=== PATIENT | male | born 1960 | race Caucasian/White ===

== ENCOUNTER 2019-05-18 14:33 | Observation (INO) ==
[2019-05-18] MEDS ORDERED: ASPIRIN CHEW 324 MG PO STA (14:54)
--- NOTE | 2019-05-18 15:03 | XRay Report ---
XR chest 1V portable CLINICAL HISTORY: Atypical chest pain COMPARISON STUDY: CT scan performed the same day FINDINGS: The cardiac and mediastinal contours are normal. There is no evidence of focal pulmonary co nsolidation. There is no evidence of failure. No pleural effusions are visualized.[Mild emphysema is suspected. There is lingular atelectasis/scarring. IMPRESSION: No active disease in the chest. ACT 112: Negative or not required by law. Electronically signed by: Kan Hernandez M.D. 05/18/2019 3:01 PM
[2019-05-18 15:27] LABS: Basophils # (auto) 0.06 K/uL (0-0.2); Basophils % (auto) 0.5 %; Eosinophils # (auto) 0.34 K/uL (0-0.5); Eosinophils % (auto) 3.1 %; Hematocrit (blood only) 47.5 % (42-52); Immature Granulocytes # (auto) 0.04 K/uL (0.00-0.02); Immature Granulocytes % (auto) 0.4 %; Lymphocytes # (auto) 2.83 K/uL (1.2-3.4); Lymphocytes % (auto) 25.9 %; Mean Corpuscular Hemoglobin 28.4 pg (25-34); Mean Corpuscular Hgb Conc 33.7 g/dL (32-36); Mean Corpuscular Volume 84.2 fL (80-100); Mean Platelet Volume 8.8 fL (7.4-10.4); Monocytes # (auto) 0.87 K/uL (0.11-0.59); Neutrophils # (auto) 6.78 K/uL (1.4-6.5); Neutrophils % (auto) 62.1 %; Platelet Count 279 K/uL (130-400); RDW Coefficient of Variation 14.2 % (11.5-14.5); RDW Standard Deviation 43.7 fL (36.4-46.3); Red Blood Count 5.64 M/uL (4.7-6.1); White Blood Count 10.92 K/uL (4.8-10.8)
[2019-05-18 15:45] LABS: Alanine Aminotransferase 24 U/L (12-78); Albumin Level 3.5 gm/dl (3.4-5.0); Aspartate Aminotransferase 11 U/L (15-37); BUN Creatinine Ratio 20.5 (10-20); Blood Urea Nitrogen 21 mg/dl (7-18); Calcium 9.1 mg/dl (8.5-10.1); Carbon Dioxide 26 mmol/L (21-32); Chloride 104 mmol/L (98-107); Creatinine Clr Calc Pharmacy 110.1 ml/min; Est GFR (African American) 89.6; Est GFR (Non-African American) 77.3; Glucose 102 mg/dl (70-99); Lipase 104 U/L (73-393); Sodium 135 mmol/L (136-145)
[2019-05-18 15:49] LABS: Albumin Globulin Ratio 0.7 (0.9-2); Alkaline Phosphatase 78 U/L (45-117); Bilirubin,Total 0.5 mg/dl (0.2-1); Partial Thromboplastin Time 26.1 Seconds (21.0-31.0); Prothrombin Time 10.7 Seconds (9.0-12.0); Total Protein 8.5 gm/dl (6.4-8.2); Troponin I < 0.015 ng/ml (0-0.045)
--- NOTE | 2019-05-18 17:04 | History & Physical Report ---
Date of Service May 18, 2019 Assessment & Plan (1) Chest pain: This is a 58-year-old male who has significant past medical history of COPD, tobacco abuse, prediabetes who presents to ED at the referral of cardiology clinic secondary to chest pain x several weeks. Admit to PCU Consult Cardiology Dr. Coburn - plan for cardiac catheterization in a.m. given symptoms suggestive of angina, +FH, tobacco abuse cycle troponin x 3 repeat ecg obtain resting echocardiogram fasting lipid panel, a1c in a.m. tobacco cessation advised Give IVF x 1 L given pre renal Bun 21, Cr 1.05 in prep for cardiac cath in a.m. (2) COPD (chronic obstructive pulmonary disease): No acute exacerbation Saturating well on room air Continue Anoro (3) Tobacco abuse: Tobacco cessation encouraged Patient declined willingness to quit at this time continue to provide education on smoking cessation (4) Pre-diabetes: Last A1c 6.1 05/08/2019 Encourage lifestyle modifications and weight reduction (5) Obesity: encourage life style modifications (6) DVT prophylaxis: SCD/TEDS Disposition: admit to tele, cardiac cath in a.m. Follow up: PCP Dr. Yoder upon discharge along with appropriate cardiology follow up Pt was seen and examined in collaboration with Dr. Blackwood, please see addendum History of Present Illness Chief Complaint: Chest pain x several weeks progressively worsening. Primary Care Provider: Leif Yoder MD This is a 58-year-old male who has significant past medical history of COPD, tobacco abuse, prediabetes who presents to ED at the referral of cardiology clinic secondary to chest pain times several weeks. Patient follows with Dr. mullins for pulmonology and his diagnosis of COPD and emphysema. During his last visit he mentioned about tachycardia and feeling like his heart was racing with minimal exertion. He then referred him to cardiology for further evaluation which she was seen today in clinic by Nella Arreola PA-C. Patient complained that he has been experiencing left-sided chest discomfort for approximately 2 years. Over the past 2 years his symptoms have been progressively worsening. Initially symptoms would just be with exertion but has now progressed to at rest. Chest pain is left-sided, now occasionally radiating to left neck and jaw with associated dizziness and diaphoresis, described as a "pinching," improved with rest and made worse with exertion. He states he has learned how to improve symptoms by resting and changing his position. 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 He states even with climbing 1 flight of stairs he gets symptomatic and has to rest. He denies any lower extremity edema, orthopnea or PND. He further denies any recent illness, fever, chills, sweats, syncope, shortness of breath at rest, nausea, vomiting, abdominal pain, change in bowel or urinary habits. Currently he is asymptomatic. He is a 1 to 2 pack/day smoker and has smoked since the age of 12. "It is a mental thing." Denies willingness to quit at this time. He does have a positive family history with CAD in his mother and his brother who in his 30s secondary to a massive heart attack, "his heart exploded." However, when he was in cardiology clinic today he did get acute onset of left-sided chest discomfort with radiation to jaw and associated diaphoresis. Symptoms resolved quickly without intervention. EKG performed which revealed inferior infarct and subtle ST elevation in inferior leads per report. Because of acute onset symptoms he was referred to ED for further evaluation. During my evaluation he is resting comfortably and is asymptomatic. In ED he has remained hemodynamically stable. Initial troponin is WNL. Chest x-ray is with no acute cardiopulmonary disease. EKG revealed normal sinus rhythm 74 bpm with inferior and anterior infarct. No acute ST or T wave changes noted. He did have mild elevation in BUN 21 and creatinine 1.05. He received ASA 324 mg x 1 in ED. Allergies Allergy/AdvReac Type Severity Reaction Status Date / Time No Known Allergies Allergy Verified 05/18/19 15:54 Home Medications Home Medications Medication Instructions Recorded Confirmed Type umeclidinium-vilanterol [Anoro 1 inh INHALATION DAILY 05/18/19 05/18/19 History Ellipta] Past Med/Surg History Medical History COPD (chronic obstructive pulmonary disease) Pre-diabetes Tobacco abuse Surgical History History of tonsillectomy Family History Father Cancer COPD (chronic obstructive pulmonary disease) Mother Coronary heart disease Brother , 30s Myocardial infarction Other No significant family history Social History (Updated 05/18/19 @ 16:55 by Steffi Duggan PA-C) Preferred Language: Vietnamese Communication Ability: Effective Ham Pumper Required: No Beliefs That Will Affect Care: None marital status: Current Living Situation: Spouse Current Living Situation Comment: 2 story house Other Information That Helps Us Care for You: No Feels Safe at Home: Yes Safety Concerns: Feels Safe At This Time Smoking Status: Current every day smoker Tobacco Type: cigarettes ; Age Started Using Tobacco: 12 ; packs per day: 1 ; Years Smoked: 46 ; Cigarettes Per Day: 2 packs/day since he was 12 years old ; Do You Dip or Chew Tobacco: No ; Second Hand Exposure: Yes ; Tobacco Cessation Education Requested by Patient: No Hx Alcohol Use: Yes Alcohol type: beer and hard liquor Alcohol Intake Frequency: Rarely Hx Substance Use: No Review of Systems Review of Systems: All systems reviewed & are unremarkable except as noted in HPI & below Physical Exam Physical Exam: Constitutional: WD/WN, morbidly obese, M, vitals as above, NAD, sitting up in bed, pleasant, conversing easily Head: Normocephalic, Atraumatic Eyes: PERRL, conjunctivae normal, anicteric sclerae ENMT: external ear and nose normal, oropharynx normal Neck: trachea midline, no thyromegaly normal visual inspection Respiratory: normal respiratory effort, lungs clear to auscultation, no wheeze, rales, rhonchi. Normal insp/exp effort, no accessory muscle use Cardiovascular: RRR, distant heart sounds due to body habitus, no murmur, no edema Vessels: no JVD or carotid bruit Chest: normal inspection of chest Abdomen: protuberant abdomen, normal bowel sounds, soft, nontender, no hepatosplenomegaly Musculoskeletal: no cyanosis or clubbing, extremities motor strength 5/5 Skin: no rashes, warm and dry normal turgor Neurologic: PERRL, EOMI, accommodation nl, no face palsy, no dysarthria CN's II-XI intact bilaterally and moves all extremities Psychiatric: A+Ox3, euthymic affect Lymphatic: no cervical or axillary lymphadenopathy : deferred Results & Data Vital Signs (Past 12 Hours) Vital Signs Temp Pulse Pulse Resp BP BP Pulse Ox 05/18/19 16:30 68 20 137/90 95 05/18/19 16:00 73 18 132/73 95 05/18/19 15:30 73 22 123/72 92 05/18/19 14:45 95 05/18/19 14:40 36.8 C 75 20 161/80 H 95 Laboratory Results Short CBC 05/18/19 05/18/19 Range/Units 15:11 15:11 WBC 10.92 H (4.8-10.8) K/uL Hgb 16.0 (14.0-18.0) g/dL Hct 47.5 (42-52) % Plt Count 279 (130-400) K/uL Sodium 135 L (136-145) mmol/L BUN 21 H (7-18) mg/dl Creatinine 1.05 (0.6-1.4) mg/dl BMP 05/18/19 15:11 Sodium 135 L Potassium 4.0 Chloride 104 Carbon Dioxide 26 BUN 21 H Creatinine 1.05 Glucose 102 H Calcium 9.1 Cardiac Enzymes 05/18/19 Range/Units 15:11 Troponin I < 0.015 (0-0.045) ng/ml Liver Function 05/18/19 Range/Units 15:11 Total Bilirubin 0.5 (0.2-1) mg/dl AST 11 L (15-37) U/L ALT 24 (12-78) U/L Alkaline Phosphatase 78 (45-117) U/L Albumin 3.5 (3.4-5.0) gm/dl Diagnostic Findings CXR: FINDINGS: The cardiac and mediastinal contours are normal. There is no evidence of focal pulmonary consolidation. There is no evidence of failure. No pleural effusions are visualized.[Mild emphysema is suspected. There is lingular atelectasis/scarring. IMPRESSION: No active disease in the chest. Medications Administered Discontinued Medications Aspirin (Aspirin) 324 mg PO NOW [facility] Stop: 05/18/19 14:55 Last Admin: 05/18/19 15:22 Dose: 324 mg Documented by: [id number] ECG Rate (beats per minute): 74 Rhythm: normal sinus Findings: + nonspecific-ST abn (subtle lateral, III st wave changes) and + Q waves (inferior) Comparison ECG Date: no prior available Additional Comments: QTC 452ms Code Status & VTE Plan Code Status Full Code VTE Prophylaxis Plan VTE Prophylaxis will be ordered: Yes Supervising Physician Co-Signing Physician Notes Attending addendum Patient was seen and examined in telemetry unit in presence of the He has been complaining of exertional shortness of breath without any significant chest pain for the last several weeks Was seen in the cardiology clinic today and was advised to come into the hospital Denies any chest pain or palpitation during my examination On examination Lying in bed comfortably He is obese Hemodynamically stable Chest-clear to auscultate bilaterally Heart-S1, S2 regular. No murmur appreciated Abdomen-soft, distended, bowel sounds present Extremities-trace edema bilaterally Admission labs, EKG and imaging studies reviewed Has atypical angina for further evaluation Cardiology consulted for possible cardiac cath tomorrow Agree with assessment plan as outlined above by Abilio Blackwood (1) Chest pain Chest pain type: unspecified Qualified Code(s): R07.9 - Chest pain, unspecified
[2019-05-18] MEDS ORDERED: ACETAMINOPHEN 325 MG TAB PO PRN (17:12)
[2019-05-18] MEDS ORDERED: MAGNESIUM HYDROXIDE SUSP 30 ML UDC PO PRN (17:12)
[2019-05-18] MEDS ORDERED: ONDANSETRON INJ 2 MG/ML 2 ML VIAL IV PRN (17:12)
[2019-05-18] MEDS ORDERED: ALUMINUM/MAGNESIUM SUSP 30 ML UDC PO PRN (17:12)
[2019-05-18] MEDS ORDERED: SODIUM CHLORIDE 0.9% 1000ML 1,000 ML IV SCH (17:12)
[2019-05-18] MEDS ORDERED: NITROGLYCERIN SL 0.4 MG/TAB TAB SL PRN (17:12)
[2019-05-18] MEDS ORDERED: POLYETHYLENE (MIRALAX) 17 GM PACK PO PRN (17:12)
[2019-05-18] MEDS: AMLODIPINE BESYLATE 5 MG TAB PO SCH (20:33)
--- NOTE | 2019-05-18 21:41 | Emergency Department Note ---
Entered by Leoncio Hanna acting as a scribe for History of Present Illness General Chief complaint: Cardiac Assessment Stated complaint: SENT BY DR NICOLE FOR HEART CATH Time Seen by Provider: 05/18/19 14:45 Source: patient History of Present Illness Onset (ago): month(s) 1 Location: chest Pain Consistency: + other (worsening) Maximum Pain Intensity: 0 Quality: + other (SOB) Associated symptoms: + other (Positive for weakness, a racing heart, and intermittent dizziness. Negative for current SOB, CP and LOC.) The patient is a 58 year old male who presents to the emergency department with complaints of worsening SOB beginning a month ago. The patient states that he was referred to the emergency department by Dr. Almas GRIJALVA for a cardiac catheterization. He notes that he has had SOB, weakness, and a racing heart for the last month, but he reports that his symptoms have been worsening recently. He also complains of intermittent dizziness. He denies any current CP, SOB, and LOC. The patient states that he has a history of COPD. Home Medications Home Medications Medication Instructions Recorded Confirmed Type umeclidinium-vilanterol [Anoro 1 inh INHALATION DAILY 05/18/19 05/18/19 History Ellipta] Allergies Allergy/AdvReac Type Severity Reaction Status Date / Time No Known Allergies Allergy Verified 05/18/19 15:54 Past Med/Surg History Medical History COPD (chronic obstructive pulmonary disease) Pre-diabetes Tobacco abuse Surgical History History of tonsillectomy Family History Father Cancer COPD (chronic obstructive pulmonary disease) Mother Coronary heart disease Brother , 30s Myocardial infarction Other No significant family history Social History (Updated 05/18/19 @ 16:55 by Steffi Duggan PA-C) Preferred Language: Iraqi Communication Ability: Effective 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 Rod 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 Required: No Beliefs That Will Affect Care: None marital status: Current Living Situation: Spouse Current Living Situation Comment: 2 story house Other Information That Helps Us Care for You: No Feels Safe at Home: Yes Safety Concerns: Feels Safe At This Time Smoking Status: Current every day smoker Tobacco Type: cigarettes ; Age Started Using Tobacco: 12 ; packs per day: 1 ; Years Smoked: 46 ; Cigarettes Per Day: 2 packs/day since he was 12 years old ; Do You Dip or Chew Tobacco: No ; Second Hand Exposure: Yes ; Tobacco Cessation Education Requested by Patient: No Hx Alcohol Use: Yes Alcohol type: beer and hard liquor Alcohol Intake Frequency: Rarely Hx Substance Use: No Review of Systems See HPI for pertinent positives & negatives. and A total of 10 systems reviewed and were otherwise negative Physical Exam Vital Signs Vital Signs - 24 hr 05/18/19 14:40 05/18/19 14:45 05/18/19 15:30 Temperature 36.8 C Temperature Source Oral Pulse Rate 75 Pulse Rate [Apical] 73 Pulse Rate from SpO2 Sensor Respiratory Rate 20 22 Respiratory Effort / Characteristics Non-Labored Spontaneous Respiratory Depth Normal Respiratory Pattern Regular Blood Pressure 161/80 H Blood Pressure [Right Arm] 123/72 Blood Pressure Mean 107 Blood Pressure Mean [Right Arm] 89 Blood Pressure Position Sitting Blood Pressure Position [Right Arm] Standing Pulse Oximetry 95 95 92 Oxygen Delivery Method Room Air Room Air Room Air Sepsis Recent Fever Within 48 Hours No Sepsis New/Unexplained Change in Mental Status No Sepsis Action Taken by Nursing No Action Required 05/18/19 16:00 Temperature Temperature Source Pulse Rate 73 Pulse Rate [Apical] Pulse Rate from SpO2 Sensor 72 Respiratory Rate 18 Respiratory Effort / Characteristics Respiratory Depth Respiratory Pattern Blood Pressure 132/73 Blood Pressure [Right Arm] Blood Pressure Mean 83 Blood Pressure Mean [Right Arm] Blood Pressure Position Blood Pressure Position [Right Arm] Pulse Oximetry 95 Oxygen Delivery Method Sepsis Recent Fever Within 48 Hours Sepsis New/Unexplained Change in Mental Status Sepsis Action Taken by Nursing GENERAL: He is oriented to person, place, and time. He appears well-developed and well-nourished. He does not appear distressed. HENT: Exam performed. - Head: Normocephalic and atraumatic. - Right Ear: External ear normal. No mastoid tenderness. - Left Ear: External ear normal. No mastoid tenderness. - Mouth/Throat: The oropharynx is clear and moist. No trismus in the jaw. No dental abscesses or uvula swelling. No oropharyngeal exudate or tonsillar abscesses. EYES: Conjunctivae and EOM are normal. Pupils are equal, round, and reactive to light. Right eye exhibits no discharge. Left eye exhibits no discharge. No scleral icterus. NECK: Normal range of motion. Neck supple. No JVD present. No spinous process tenderness present. No carotid bruit present. No rigidity. No tracheal deviation and normal range of motion present. No Brudzinski's sign and no Kernig's sign noted. CV: Normal rate, regular rhythm, normal heart sounds and intact distal pulses. There is no peripheral edema. Palpable radial pulses bue. PULM/CHEST: Effort normal and breath sounds normal. No respiratory distress. No stridor. He has no wheezes. He has no rales. - Chest Wall: He exhibits no tenderness. ABD: The abdomen is soft. Bowel sounds are normal. He has no distension. No mass is present. There is no tenderness. There is no rebound, no guarding, no Galindo's sign and no tenderness at McBurney's point. Rovsig negative. MUSC/SKEL: Normal range of motion. There is no peripheral edema, tenderness or d eformity. LYMPH: No cervical adenopathy. NEURO: He is alert and oriented to person, place, and time. He has normal strength. No cranial nerve deficit or sensory deficit. Coordination and gait normal. GCS eye subscore is 4. GCS verbal subscore is 5. GCS motor subscore is 6. Cerebellar tests wnl. SKIN: Skin is warm and dry. He is not diaphoretic. PSYCH: He has a normal mood and affect. Behavior is normal. Judgment and thought content normal. Course Course 1447: The patient was evaluated in room A12. A complete history and physical exam was performed. 1457: I spoke to Nella Arreola PA-C, Cardiology, [facility]. She states that the patient has had decreased exercise tolerance as well as CP and SOB with exertion. She was concerned with the patients EKG in the office and went over it with Dr. Sanchez. The patients EKG today in the ER was unremarkable. It showed no ST elevation or depression. I discussed with her that because the patient has no EKG changes or current chest pain, if the workup is negative he will be admitted to the hospital with Dr. Nicole as consult. She is in agreement. 1458: I discussed the patients case with Dr. Nicole Cardiology, [facility]. He agrees that if the patients workup is negative, he can cath the patient tomorrow. He will evaluation the patient after he is finished with his current case. 1557: Upon reevaluation, the patient is stable. Vital signs stable. Labs and imaging within normal limits. I discussed the findings and the treatment plan with the patient. He expresses agreement and understanding. I spoke with Steffi Duggan PA-C, financial management consultant for [facility]. The patient will be evaluated for further management. Consultations Consultation #1: I spoke to Nella Arreola PA-C, Cardiology, [facility]. She states that the patient has had decreased exercise tolerance as well as CP and SOB with exertion. She was concerned with the patients EKG in the office and went over it with Dr. Sanchez. The patients EKG today in the ER was unremarkable. It showed no ST elevation or depression. I discussed with her that because the patient has no EKG changes or current chest pain, if the workup is negative he will be admitted to the hospital with Dr. Nicole as consult. She is in agreement. Time: 14:57 Consultation #2: I discussed the patients case with Dr. Nicole Cardiology, [facility]. He agrees that if the patients workup is negative, he can cath the patient tomorrow. He will evaluation the patient after he is finished with his current case. Time: 14:58 Consultation #3: I reviewed the patient's case with Steffi Duggan PA-C, financial management consultant for [facility]. She will evaluate the patient for further management. Time: 15:57 Administered Medications Amlodipine Besylate (Norvasc) 5 mg PO QAM [facility] Stop: 06/17/19 18:59 Last Admin: 05/18/19 20:33 Dose: 5 mg Documented by: [id number] Sodium Chloride (Nss 1000ml) 1,000 mls @ 125 mls/hr IV .Q8H FRANTZ Stop: 05/19/19 01:11 Last Admin: 05/18/19 18:15 Dose: 125 mls/hr Documented by: [id number] Discontinued Medications Aspirin (Aspirin) 324 mg PO NOW [facility] Stop: 05/18/19 14:55 Last Admin: 05/18/19 15:22 Dose: 324 mg Documented by: [id number] Medical Decision Making Medical Records Attestation: I reviewed the patient's medical records. Home Medications Current Medication List: was personally reviewed by me Laboratory Data Attestation: I reviewed the patient's lab results. Result diagrams: 05/18/19 15:11 05/18/19 15:11 Lab Results 05/18/19 05/18/19 05/18/19 Range/Units 15:11 15:11 15:11 WBC 10.92 H (4.8-10.8) K/uL RBC 5.64 (4.7-6.1) M/uL Hgb 16.0 (14.0-18.0) g/dL Hct 47.5 (42-52) % MCV 84.2 (80-100) fL MCH 28.4 (25-34) pg MCHC 33.7 (32-36) g/dL RDW Std Deviation 43.7 (36.4-46.3) fL RDW Coeff of Eri 14.2 (11.5-14.5) % Plt Count 279 (130-400) K/uL MPV 8.8 (7.4-10.4) fL Immature Gran % (Auto) 0.4 % Neut % (Auto) 62.1 % Lymph % (Auto) 25.9 % [place] % (Auto) 8.0 % Eos % (Auto) 3.1 % Baso % (Auto) 0.5 % Immature Gran # (Auto) 0.04 H (0.00-0.02) K/uL Neut # (Auto) 6.78 H (1.4-6.5) K/uL Lymph # (Auto) 2.83 (1.2-3.4) K/uL [place] # (Auto) 0.87 H (0.11-0.59) K/uL Eos # (Auto) 0.34 (0-0.5) K/uL Baso # (Auto) 0.06 (0-0.2) K/uL PT 10.7 (9.0-12.0) Seconds INR 1.0 (0.9-1.1) APTT 26.1 (21.0-31.0) Seconds PTT Ratio 1.0 Sodium 135 L (136-145) mmol/L Potassium 4.0 (3.5-5.1) mmol/L Chloride 104 (98-107) mmol/L Carbon Dioxide 26 (21-32) mmol/L Anion Gap 5.0 (3-11) BUN 21 H (7-18) mg/dl Creatinine 1.05 (0.6-1.4) mg/dl Est Cr Clr Drug Dosing 110.1 ml/min Est GFR ( Amer) 89.6 Est GFR (Non-Af Amer) 77.3 BUN/Creatinine Ratio 20.5 H (10-20) Glucose 102 H (70-99) mg/dl Calcium 9.1 (8.5-10.1) mg/dl Total Bilirubin 0.5 (0.2-1) mg/dl AST 11 L (15-37) U/L ALT 24 (12-78) U/L Alkaline Phosphatase 78 (45-117) U/L Troponin I < 0.015 (0-0.045) ng/ml Total Protein 8.5 H (6.4-8.2) gm/dl Albumin 3.5 (3.4-5.0) gm/dl Globulin 5.0 H (2.5-4.0) gm/dl Albumin/Globulin Ratio 0.7 L (0.9-2) Lipase 104 (73-393) U/L Imaging Data Radiologist's Impression: Radiology results as stated below per my review and the radiologist's interpretation: XR chest 1V portable FINDINGS: The cardiac and mediastinal contours are normal. There is no evidence of focal pulmonary consolidation. There is no evidence of failure. No pleural effusions are visualized.[Mild emphysema is suspected. There is lingular atelectasis/scarring. IMPRESSION: No active disease in the chest. ACT 112: Negative or not required by law. Electronically signed by: Kan Hernandez M.D. 05/18/2019 3:01 PM ECG Data Attestation: I personally reviewed and interpreted this ECG as follows: Indication: + SOB/dyspnea Rate (beats per minute): 74 Rhythm: + sinus rhythm ECG ST segments: no ST depression and no ST elevation Additional Comments: MT/QRS/QTC within normal limits. Blood Pressure Blood Pressure Findings: Normal blood pressure Blood Pressure Disposition: did not require urgent referral MDM Narrative 1447: The patient was evaluated in room A12. A complete history and physical exam was performed. 1457: I spoke to Nella Arreola PA-C, Cardiology, [facility]. She states that the patient has had decreased exercise tolerance as well as CP and SOB with exertion. She was concerned with the patients EKG in the office and went over it with Dr. Sanchez. The patients EKG today in the ER was unremarkable. It showed no ST elevation or depression. I discussed with her that because the patient has no EKG changes or current chest pain, if the workup is negative he will be admitted to the hospital with Dr. Nicole as consult. She is in agreement. 1458: I discussed the patients case with Dr. Nicole Cardiology, [facility]. He agrees that if the patients workup is negative, he can cath the patient tomorrow. He will evaluation the patient after he is finished with his current case. 1557: Upon reevaluation, the patient is stable. Vital signs stable. Labs and imaging within normal limits. I discussed the findings and the treatment plan with the patient. He expresses agreement and understanding. I spoke with Steffi Duggan PA-C, financial management consultant for Dr. Blackwood - Hospitalist, [facility]. The patient will be evaluated for further management. Impression & Plan Chest pain Discharge Plan Visit Data *Final* Discharge Date/Time: 05/18/19 16:41 Chief Complaint: Cardiac Assessment Stated Complaint: SENT BY DR NICOLE FOR HEART CATH ED Provider: Ayaz Solis Discharge Problem: Chest pain Patient Disposition: Admitted As Inpatient Discharge Instructions Interventions: ED Discharge Assessment Last Done: 05/18/19 16:41 Discharge Problem: Chest pain Qualifiers: Chest pain type: unspecified Qualified Code(s): R07.9 - Chest pain, unspecified The scribe's documentation has been prepared under my direction and personally reviewed by me in its entirety. I confirm that the note above accurately reflects all work, treatment, procedures, and medical decision making performed by me.
[2019-05-19 02:27] LABS: Basophils # (auto) 0.06 K/uL (0-0.2); Basophils % (auto) 0.6 %; Eosinophils # (auto) 0.51 K/uL (0-0.5); Eosinophils % (auto) 5.1 %; Hematocrit (blood only) 45.2 % (42-52); Immature Granulocytes # (auto) 0.06 K/uL (0.00-0.02); Immature Granulocytes % (auto) 0.6 %; Lymphocytes # (auto) 2.89 K/uL (1.2-3.4); Lymphocytes % (auto) 29.1 %; Mean Corpuscular Hemoglobin 28.1 pg (25-34); Mean Corpuscular Hgb Conc 33.2 g/dL (32-36); Mean Corpuscular Volume 84.6 fL (80-100); Mean Platelet Volume 8.7 fL (7.4-10.4); Monocytes # (auto) 0.87 K/uL (0.11-0.59); Monocytes % (auto) 8.8 %; Neutrophils # (auto) 5.55 K/uL (1.4-6.5); Neutrophils % (auto) 55.8 %; Platelet Count 224 K/uL (130-400); RDW Coefficient of Variation 14.2 % (11.5-14.5); RDW Standard Deviation 44.3 fL (36.4-46.3); Red Blood Count 5.34 M/uL (4.7-6.1); White Blood Count 9.94 K/uL (4.8-10.8)
[2019-05-19 02:49] LABS: BUN Creatinine Ratio 23.2 (10-20); Blood Urea Nitrogen 20 mg/dl (7-18); Calcium 8.3 mg/dl (8.5-10.1); Carbon Dioxide 27 mmol/L (21-32); Chloride 106 mmol/L (98-107); Creatinine Clr Calc Pharmacy 134.3 ml/min; Est GFR (Non-African American) 94.9; Glucose 109 mg/dl (70-99); Sodium 137 mmol/L (136-145)
[2019-05-19 02:54] LABS: Chol HDL Ratio 7; Cholesterol 192 mg/dl (0-200); HDL Cholesterol 27 mg/dl; LDL Cholesterol Calculated 133 mg/dl; Triglycerides 159 mg/dl (0-150); Troponin I < 0.015 ng/ml (0-0.045); VLDL Cholesterol 32 mg/dl
[2019-05-19 06:19] LABS: Estimated Average Glucose 123 mg/dl; Hemoglobin A1C 5.9 % (4.5-5.6)
--- NOTE | 2019-05-19 06:22 | Electrocardiogram Report ---
Test Reason : Blood Pressure : / mmHG Vent. Rate : 074 BPM Atrial Rate : 074 BPM P-R Int : 178 ms QRS Dur : 106 ms QT Int : 408 ms P-R-T Axes : 046 247 060 degrees QTc Int : 452 ms Normal sinus rhythm Right superior axis deviation Inferior infarct , age undetermined Possible Anterior infarct , age undetermined Abnormal ECG No previous ECGs available Confirmed by Darron Johnson ([id number]) on 05/19/2019 6:21:54 AM Referred By: Brian Coburn Confirmed By:Darron Johnson
--- NOTE | 2019-05-19 08:28 | Cardiology Consultation ---
Date of Consultation May 19, 2019 Assessment & Plan (1) Chest pain: 2. Abnormal EKG 3. Palpitations 4. Elevated blood pressure 5. Tobacco use Patient without prior cardiac history endorses chest pressure concerning for accelerating angina. Now with episodes of chest pain at rest. Patient was symptomatic in the office yesterday with chest,neck/jaw pressure and diaphoresis. Symptoms resolved quickly without intervention. Electrocardiogram with inferior infarct and subtle ST elevation inferior leads. Referred to [facility]. Serial troponin negative. Currently chest pain free. Plan for cardiac cath later this morning with Dr. Coburn. History of Present Illness Attending Physician: Duong Corral MD History of Present Illness Mr. Ybarra is a pleasant 58 year old male with history of COPD and tobacco use. He was admitted yesterday after being referred from the outpatient cardiology office. Patient was seen by me in the office yesterday. He denies history of cardiovascular disease. He follows with Dr. Núñez for his COPD and at his recent pulmonary visit mentioned episodes of his heart racing and was referred to our office. He describes an elevated heart rate most notable with activity. Symptoms have been present for some time. Taking deep breathes improves the tachycardia. He does not describe an irregular heart beat. He also has episode of dizziness and near syncope which are not correlated to his palpitations. Patient also mentions that he feels fatigued and "plays out" very easily which is new for him. Also has been having pressure in his upper chest, throat and jaw. Initially the symptoms would only occur with activity but more recently has been also having chest pain at rest. He has an associated flushed sensation. He experienced the symptoms during our office visit today. Symptoms resolved in several minutes. His electrocardiogram shows evidence of an inferior infarct with subtle ST elevation in the inferior leads. Denies orthopnea, PND, edema, claudication or abnormal bleeding. He was referred to [facility] for further management. Dr. Coburn to perform cardiac catheterization later this morning. Patient is currently chest pain free. Troponin negative x3. Tele unremarkable. Family history: Brothers heart "exploded" in his 30s. Father of emphysema. Mother had heart disease. Social history: ( [place] is Dr. Coburn patient). 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 Allergies Allergy/AdvReac Type Severity Reaction Status Date / Time No Known Allergies Allergy Verified 05/18/19 15:54 Home Medications Home Medications Medication Instructions Recorded Confirmed Type umeclidinium-vilanterol [Anoro 1 inh INHALATION DAILY 05/18/19 05/18/19 History Ellipta] Patient History Medical History COPD (chronic obstructive pulmonary disease) Pre-diabetes Tobacco abuse Surgical History History of tonsillectomy Family History Father Cancer COPD (chronic obstructive pulmonary disease) Mother Coronary heart disease Brother , 30s Myocardial infarction Other No significant family history Social History (Updated 05/18/19 @ 16:55 by Steffi Duggan PA-C) Preferred Language: French Communication Ability: Effective Services Mgr Required: No Beliefs That Will Affect Care: None marital status: Current Living Situation: Spouse Current Living Situation Comment: 2 story house Other Information That Helps Us Care for You: No Feels Safe at Home: Yes Safety Concerns: Feels Safe At This Time Smoking Status: Current every day smoker Tobacco Type: cigarettes ; Age Started Using Tobacco: 12 ; packs per day: 1 ; Years Smoked: 46 ; Cigarettes Per Day: 2 packs/day since he was 12 years old ; Do You Dip or Chew Tobacco: No ; Second Hand Exposure: Yes ; Tobacco Cessation Education Requested by Patient: No Hx Alcohol Use: Yes Alcohol type: beer and hard liquor Alcohol Intake Frequency: Rarely Hx Substance Use: No Review of Systems Review of Systems: All systems reviewed & are unremarkable except as noted in HPI & below Physical Exam Physical Exam: General: No acute distress. Obese HEENT: Head is normal. PERRLA. EOMI. Sclerae anicteric. Ears, nose and throat unremarkable. Mucous membranes moist. Neck: Normal carotid upstrokes, no bruits. No appreciable JVD. Lungs: Clear to auscultation bilaterally without rales, rhonchi or wheezes. Cardiac: Regular rate and rhythm. S1-S2 normal. No appreciable murmur, gallop or rub. Abdomen: Soft and nontender. Bowel sounds normal. No mass or organomegaly. No abdominal bruit. Extremities/vascular: Well perfused. No peripheral edema. Radial, DP and PT pulses 2+ bilaterally Skin: No rash or abnormal lesions. Normal turgor. Neurologic: Nonfocal Psychiatric: Affect appropriate. Alert and oriented. Results & Data ([facility]) Vital Signs (Past 12 Hours) Vital Signs Temp Pulse Resp BP BP Pulse Ox 05/19/19 07:41 36.6 C 63 18 131/81 93 05/19/19 04:00 36.8 C 59 L 18 130/78 92 05/18/19 23:27 37 C 61 20 136/76 92 Laboratory Results Laboratory Results - last 24 hr 05/18/19 05/18/19 05/18/19 15:11 15:11 15:11 WBC 10.92 H RBC 5.64 Hgb 16.0 Hct 47.5 MCV 84.2 MCH 28.4 MCHC 33.7 RDW Std Deviation 43.7 RDW Coeff of Eri 14.2 Plt Count 279 MPV 8.8 Immature Gran % (Auto) 0.4 Neut % (Auto) 62.1 Lymph % (Auto) 25.9 [place] % (Auto) 8.0 Eos % (Auto) 3.1 Baso % (Auto) 0.5 Immature Gran # (Auto) 0.04 H Neut # (Auto) 6.78 H Lymph # (Auto) 2.83 [place] # (Auto) 0.87 H Eos # (Auto) 0.34 Baso # (Auto) 0.06 PT 10.7 INR 1.0 APTT 26.1 PTT Ratio 1.0 Sodium 135 L Potassium 4.0 Chloride 104 Carbon Dioxide 26 Anion Gap 5.0 BUN 21 H Creatinine 1.05 Est Cr Clr Drug Dosing 110.1 Est GFR ( Amer) 89.6 Est GFR (Non-Af Amer) 77.3 BUN/Creatinine Ratio 20.5 H Glucose 102 H Estimat Average Glucose Hemoglobin A1c Calcium 9.1 Total Bilirubin 0.5 AST 11 L ALT 24 Alkaline Phosphatase 78 Troponin I < 0.015 Total Protein 8.5 H Albumin 3.5 Globulin 5.0 H Albumin/Globulin Ratio 0.7 L Triglycerides Cholesterol LDL Cholesterol, Calc VLDL Cholesterol, Calc HDL Cholesterol Cholesterol/HDL Ratio Lipase 104 05/18/19 05/19/19 05/19/19 19:48 02:07 02:07 WBC 9.94 RBC 5.34 Hgb 15.0 Hct 45.2 MCV 84.6 MCH 28.1 MCHC 33.2 RDW Std Deviation 44.3 RDW Coeff of Eri 14.2 Plt Count 224 MPV 8.7 Immature Gran % (Auto) 0.6 Neut % (Auto) 55.8 Lymph % (Auto) 29.1 [place] % (Auto) 8.8 Eos % (Auto) 5.1 Baso % (Auto) 0.6 Immature Gran # (Auto) 0.06 H Neut # (Auto) 5.55 Lymph # (Auto) 2.89 [place] # (Auto) 0.87 H Eos # (Auto) 0.51 H Baso # (Auto) 0.06 PT INR APTT PTT Ratio Sodium 137 Potassium 4.0 Chloride 106 Carbon Dioxide 27 Anion Gap 4.0 BUN 20 H Creatinine 0.86 Est Cr Clr Drug Dosing 134.3 Est GFR ( Amer) 110.0 Est GFR (Non-Af Amer) 94.9 BUN/Creatinine Ratio 23.2 H Glucose 109 H Estimat Average Glucose Hemoglobin A1c Calcium 8.3 L Total Bilirubin AST ALT Alkaline Phosphatase Troponin I < 0.015 < 0.015 Total Protein Albumin Globulin Albumin/Globulin Ratio Triglycerides 159 H Cholesterol 192 LDL Cholesterol, Calc 133 VLDL Cholesterol, Calc 32 HDL Cholesterol 27 Cholesterol/HDL Ratio 7 Lipase 05/19/19 02:07 WBC RBC Hgb Hct MCV MCH MCHC RDW Std Deviation RDW Coeff of Eri Plt Count MPV Immature Gran % (Auto) Neut % (Auto) Lymph % (Auto) [place] % (Auto) Eos % (Auto) Baso % (Auto) Immature Gran # (Auto) Neut # (Auto) Lymph # (Auto) [place] # (Auto) Eos # (Auto) Baso # (Auto) PT INR APTT PTT Ratio Sodium Potassium Chloride Carbon Dioxide Anion Gap BUN Creatinine Est Cr Clr Drug Dosing Est GFR ( Amer) Est GFR (Non-Af Amer) BUN/Creatinine Ratio Glucose Estimat Average Glucose 123 Hemoglobin A1c 5.9 H Calcium Total Bilirubin AST ALT Alkaline Phosphatase Troponin I Total Protein Albumin Globulin Albumin/Globulin Ratio Triglycerides Cholesterol LDL Cholesterol, Calc VLDL Cholesterol, Calc HDL Cholesterol Cholesterol/HDL Ratio Lipase ECG Additional Comments: EKG sinus rhythm with inferior infarct and subtle ST elevation PG Care Time/CCT Total # of Minutes Spent Total Time Spent with Patient: Total time spent is greater than 50% in coordination of care (as documented) at patient's floor/unit and/or counseling patient: Coding Level of Care Code 83945 Inpt Consult Level 4 Diagnoses Chest pain R07.9 Chest pain type: unspecified (1) Chest pain Chest pain type: unspecified Qualified Code(s): R07.9 - Chest pain, unspecified
[2019-05-19] MEDS ORDERED: UMECLIDINIUM/VILANTEROL 62.5/25MCG 7 PUFFS/INHALER INH SCH (09:00)
[2019-05-19] MEDS: AMLODIPINE BESYLATE 5 MG TAB PO SCH (09:26)
[2019-05-19] MEDS ORDERED: fentaNYL citrate 100 MCG/2 ML VIAL ONE (11:51)
[2019-05-19] MEDS ORDERED: MIDAZOLAM HCL 1 MG/ML 2ML VIAL ONE (11:51)
[2019-05-19] MEDS ORDERED: HEPARIN (PORCINE) 1000 UNIT/ML 10 ML (CATH LAB USE ONLY) ONE (11:51)
[2019-05-19] MEDS ORDERED: NiCARDipine HCL INJ 2.5 MG/ML 10 ML AMP ONE (11:51)
[2019-05-19] MEDS ORDERED: NITROGLYCERIN/D5W 100MCG/ML 20ML SYR ONE (11:52)
--- NOTE | 2019-05-19 12:25 | Pre Anesthesia Assessment ---
Date of Service May 19, 2019 Pre Sedation Assessment Vital Signs Temp Pulse Pulse Pulse Resp BP BP 05/19/19 11:16 97.9 F 57 L 18 139/81 05/19/19 07:41 97.9 F 63 18 131/81 05/19/19 04:00 98.2 F 59 L 18 130/78 05/18/19 23:27 98.6 F 61 20 05/18/19 19:15 98.1 F 75 18 05/18/19 17:12 97.9 F 69 18 157/82 H 05/18/19 17:08 80 05/18/19 16:30 68 20 137/90 05/18/19 16:00 73 18 132/73 05/18/19 15:30 73 22 05/18/19 14:45 05/18/19 14:40 98.2 F 75 20 161/80 H BP Pulse Ox 05/19/19 11:16 93 05/19/19 07:41 93 05/19/19 04:00 92 05/18/19 23:27 136/76 92 05/18/19 19:15 137/70 91 05/18/19 17:12 157/77 H 94 05/18/19 17:08 05/18/19 16:30 95 05/18/19 16:00 95 05/18/19 15:30 123/72 92 05/18/19 14:45 95 05/18/19 14:40 95 Cardiovascular RRR, no murmur, no edema Respiratory normal respiratory effort, lungs clear to auscultation Pre-Sedation Airway Assessment Smoking Status: Current every day smoker Hx Sleep Apnea: No Hx Difficult Intubation: No Short, Thick Neck: No Thyromental Distance: > or= 3.5 Finger Breadths Oral Cavity: + WNL Mallampati Class: III ASA: ASA3 NPO Status Date of Last Intake of Fluids: 05/18/19 Date of Last Intake of Solid Food: 05/18/19 Procedure Planning Contraindications for Sedation: none Current Medications Reviewed: Yes Notes The planned sedation has been discussed with the patient. Informed Consent was obtained. I have identified the patient, determined the appropriateness of sedation and have assessed the patient immediately prior to the procedure. All medicine(s) and interventions are by my order.
--- NOTE | 2019-05-19 12:59 | Post Anesthesia Assessment ---
Date of Service May 19, 2019 Post Sedation Assessment Vital Signs Temp Pulse Pulse Pulse Resp BP BP 05/19/19 12:55 62 20 131/91 05/19/19 11:16 97.9 F 57 L 18 139/81 05/19/19 07:41 97.9 F 63 18 131/81 05/19/19 04:00 98.2 F 59 L 18 130/78 05/18/19 23:27 98.6 F 61 20 05/18/19 19:15 98.1 F 75 18 05/18/19 17:12 97.9 F 69 18 157/82 H 05/18/19 17:08 80 05/18/19 16:30 68 20 137/90 05/18/19 16:00 73 18 132/73 05/18/19 15:30 73 22 05/18/19 14:45 05/18/19 14:40 98.2 F 75 20 161/80 H BP Pulse Ox 05/19/19 12:55 94 05/19/19 11:16 93 05/19/19 07:41 93 05/19/19 04:00 92 05/18/19 23:27 136/76 92 05/18/19 19:15 137/70 91 05/18/19 17:12 157/77 H 94 05/18/19 17:08 05/18/19 16:30 95 05/18/19 16:00 95 05/18/19 15:30 123/72 92 05/18/19 14:45 95 05/18/19 14:40 95 Recovery Score Activity: Moves 4 extremities Respiration: Deep Breath/Cough Circulation: +/-20% PreAnes Value Consciousness: Fully Awake Oxygen Saturation: O2 needed for >90% Discharge Sedation Level of Care: Fast Track Phase II Post Sedation Plan On clinical assessment, the patient appears to have tolerated the sedation without complications. Patient is recovering as anticipated. Patient will continue to be monitored by nursing and may be discharged when sedation discharge criteria are met per below protocol. Upon Completions of procedure up to 15 minutes continue every 5 minute vital signs and the P.A.R. score; then discharge to a Phase I or Fast Track to Phase II per the following guidelines: * Discharge Patient to appropriate Phase II area if PAR is 8 or greater or return to pre- procedure baseline. The post - procedure orders will be as directed. * If PAR score is less than 8 or not return to pre-procedure baseline then patient will follow Phase I monitoring till PAR is reached for Phase II. The Phase I may be done in procedure room or may call to secure a Phase I area. * If naloxone or flumazenil are used for reversal, hold in Phase I for continued monitoring from when last reversal dose was given for a minimum of 60 minutes or longer pending the nurse and/or physician discretion of patient condition before discharge to Phase II. Please call the Sedation Physician to re-evaluate and complete post-note for discharge to Phase II area. Do NOT discharge from procedure sedation or Phase 1 until post- sedation evaluation note is complete by procedure /sedation MD Sedation Discharge Instructions to be given to the patient at discharge to home.
--- NOTE | 2019-05-19 13:08 | Cardiac Catheterization ---
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 Cardiac Status Clinical evaluation leading to the procedure CAD Presenation: Stable angina Anginal Classification: CCS III Heart Failure: No Cardiogenic Shock within 24 Hours: No Cardiac Arrest within 24 Hours: No Imaging Studies Past 6 Months: Yes Stress Studies Past 6 Months: No Left Ventricular Angiography EF (%): 55 Mitral Regurgitation: 1+ Diagnostic Physicians Name: Santos Coburn MD Status: Elective Closure Device Percutaneous Entry Location: Radial Closure Device: Radial Band Recommendations: Medical Therapy and/or Counseling Intraprocedure Events Significant Disection: No Perforation: No Cardiac Cath Procedure Full Procedure Date May 19, 2019 Pre-Procedure Diagnosis Pre-Procedure Diagnosis: Angina AUC Score AUC Score: 7 Post-Procedure Diagnosis Post-Procedure Diagnosis: Normal Coronary Arteries Procedure(s) Performed Procedure(s) Performed: Coronary Angiography, Left Heart Cath and LV Angiography Baker Biscuit aSntos Coburn MD Esthetician/Skin Therapist(s) Reji Estimated Blood Loss Estimated Blood Loss: 5 Medication(s) Medication(s): Fentanyl, Heparin, Lidocaine 1%, Nicardipine, Nitroglycerin and Versed Summary of Findings Indication: Exertional chest symptoms, abnormal EKG Access: 6 Fr slender right radial artery Catheters: [place], pigtail Findings: LM -medium caliber, angiographically normal LAD -large caliber, angiographically normal. Wraps around apex. Medium caliber first diagonal without significant disease. Circumflex -medium caliber, mid segment luminal irregularities, high OM1 with 20% ostial disease RCA -dominant, large caliber, 20% proximal mid disease, mid segment luminal irregularities LVEDP -9 LVEF 55%, no regional wall motion abnormalities, mild MR Arterial Closure: TR band Summary: 1. Minimal nonobstructive coronary artery disease -20% proximal to mid RCA, ostial high OM1 2. Normal intracardiac filling pressure 3. Normal LV systolic function 4. Mild MR Recommendations: From a cardiac standpoint okay for discharge following TR band removal/hemostasis. Reports improvement in symptoms with improved blood pressure overnight and would continue current amlodipine as an outpatient Continued ASCVD risk factor modification Follow-up with cardiology in 1 month. If continued symptoms consider additional ambulatory monitoring Hemodynamics Rest Ao:: 136/69/94 Final Ao: 131/66/70 LV: 121/9 Recommendations Recommendations: Medical Therapy and/or Counseling Specimens Specimens: None Radiation Exposure (mGy) 1368 Contrast (mls) 70 Fluids (cc crystalloids) Fluids (cc crystalloids): 40 Drains Drains: None Anesthesia Moderate Procedural Complication(s) None Disposition PCU I attest to the content of the Intraoperative Record and any orders documented therein. Any exceptions are noted below. [facility] Card Cath Procedure Codes Cardiac Catheterization Procedure 1: Cardiovascular Cath Procedures: 73599 Coronaries and LHC (+/-LV) Moderate Sedation Procedure 1: Sedation/Anesthesia: 97666 Mod Sedation by the same physician;Init15 Min Child Age 5 & Up PG Care Time/CCT Total # of Minutes Spent Total Time Spent with Patient: Total time spent is greater than 50% in coordination of care (as documented) at patient's floor/unit and/or counseling patient:
--- NOTE | 2019-05-19 18:06 | Discharge Summary ---
Date of Service May 19, 2019 Admission HPI Per Admitting Provider This is a 58-year-old male who has significant past medical history of COPD, tobacco abuse, prediabetes who presents to ED at the referral of cardiology clinic secondary to chest pain times several weeks. Patient follows with Dr. mullins for pulmonology and his diagnosis of COPD and emphysema. During his last visit he mentioned about tachycardia and feeling like his heart was racing with minimal exertion. He then referred him to cardiology for further evaluation which she was seen today in clinic by Nella Arreola PA-C. Patient complained that he has been experiencing left-sided chest discomfort for approximately 2 years. Over the past 2 years his symptoms have been progressively worsening. Initially symptoms would just be with exertion but has now progressed to at rest. Chest pain is left-sided, now occasionally radiating to left neck and jaw with associated dizziness and diaphoresis, described as a "pinching," improved with rest and made worse with exertion. He states he has learned how to improve symptoms by resting and changing his position. 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 He states even with climbing 1 flight of stairs he gets symptomatic and has to rest. He denies any lower extremity edema, orthopnea or PND. He further denies any recent illness, fever, chills, sweats, syncope, shortness of breath at rest, nausea, vomiting, abdominal pain, change in bowel or urinary habits. Currently he is asymptomatic. He is a 1 to 2 pack/day smoker and has smoked since the age of 12. "It is a mental thing." Denies willingness to quit at this time. He does have a positive family history with CAD in his mother and his brother who in his 30s secondary to a massive heart attack, "his heart exploded." However, when he was in cardiology clinic today he did get acute onset of left-sided chest discomfort with radiation to jaw and associated diaphoresis. Symptoms resolved quickly without intervention. EKG performed which revealed inferior infarct and subtle ST elevation in inferior leads per report. Because of acute onset symptoms he was referred to ED for further evaluation. During my evaluation he is resting comfortably and is asymptomatic. In ED he has remained hemodynamically stable. Initial troponin is WNL. Chest x-ray is with no acute cardiopulmonary disease. EKG revealed normal sinus rhythm 74 bpm with inferior and anterior infarct. No acute ST or T wave changes noted. He did have mild elevation in BUN 21 and creatinine 1.05. He received ASA 324 mg x 1 in ED. Admission Exam Per Admitting Provider Constitutional: WD/WN, morbidly obese, M, vitals as above, NAD, sitting up in bed, pleasant, conversing easily Head: Normocephalic, Atraumatic Eyes: PERRL, conjunctivae normal, anicteric sclerae ENMT: external ear and nose normal, oropharynx normal Neck: trachea midline, no thyromegaly normal visual inspection Respiratory: normal respiratory effort, lungs clear to auscultation, no wheeze, rales, rhonchi. Normal insp/exp effort, no accessory muscle use Cardiovascular: RRR, distant heart sounds due to body habitus, no murmur, no edema Vessels: no JVD or carotid bruit Chest: normal inspection of chest Abdomen: protuberant abdomen, normal bowel sounds, soft, nontender, no hepatosplenomegaly Musculoskeletal: no cyanosis or clubbing, extremities motor strength 5/5 Skin: no rashes, warm and dry normal turgor Neurologic: PERRL, EOMI, accommodation nl, no face palsy, no dysarthria CN's II-XI intact bilaterally and moves all extremities Psychiatric: A+Ox3, euthymic affect Lymphatic: no cervical or axillary lymphadenopathy Principal Diagnosis Chest pain Discharge Exam Constitutional: WD/WN, morbidly obese male,sitting up in bed in NAD Head: Normocephalic, Atraumatic Eyes: PERRL, EOMI, conjunctivae normal, anicteric sclerae ENMT: external ear and nose normal, oropharynx normal Neck: trachea midline, no thyromegaly normal visual inspection Respiratory: normal respiratory effort, lungs clear to auscultation, no wheeze, rales, rhonchi. Normal insp/exp effort, no accessory muscle use, decreased resp. sounds Cardiovascular: RRR, distant heart sounds due to body habitus, no murmur, no edema Vessels: no JVD or carotid bruit Chest: normal inspection of chest Abdomen: normal bowel sounds, soft, obese, nontender Musculoskeletal: no cyanosis or clubbing, extremities motor strength 5/5, moves extremities spontaneously Skin: no rashes, warm and dry Neurologic: PERRL, EOMI, accommodation nl, no face palsy, no dysarthria, moves all extremities Psychiatric: A+Ox3, euthymic affect Discharge Data Allergies Allergy/AdvReac Type Severity Reaction Status Date / Time No Known Allergies Allergy Verified 05/18/19 15:54 Consultations 05/18/19 15:57 ED Decision to Admit Stat 05/18/19 16:40 Consult Cardiology Routine Procedures Performed Operation Date: 05/19/19 12:00 Actual Procedures s Cineradiography w/Routine Exam - Brian Coburn MD p Cath, Left with Cors and Vent - Brian Coburn MD Ordered Studies 05/19/19 11:57 CL Cath Imgs for PACS use only Routine Hospital Course (1) Chest pain: This is a 58-year-old male who has significant past medical history of COPD, tobacco abuse, prediabetes who presents to ED at the referral of cardiology clinic secondary to chest pain x several weeks. Consulted Cardiology Dr. Coburn - plan for cardiac catheterization in a.m. given symptoms suggestive of angina, +FH, tobacco abuse cycle troponin x 3 repeat ecg obtain resting echocardiogram fasting lipid panel, a1c in a.m. tobacco cessation advised Give IVF x 1 L given pre renal Bun 21, Cr 1.05 in prep for cardiac cath in a.m. S/p Cardiac cath (05/19/2019) Summary: 1. Minimal nonobstructive coronary artery disease -20% proximal to mid RCA, ostial high OM1 2. Normal intracardiac filling pressure 3. Normal LV systolic function 4. Mild MR Recommendations: Reports improvement in symptoms with improved blood pressure overnight and would continue current amlodipine as an outpatient Continued ASCVD risk factor modification Follow-up with cardiology in 1 month. Tobacco cessation counselling. (2) COPD (chronic obstructive pulmonary disease): No acute exacerbation Saturating well on room air Continue Anoro (3) Tobacco abuse: Tobacco cessation encouraged (4) Pre-diabetes: Last A1c 6.1 05/08/2019 Encourage lifestyle modifications and weight reduction (5) Obesity: encourage life style modifications Total Time Total Time Spent Total Time Spent (In Minutes): 40 Total Time Includes: Examination of the Patient, Discharge Planning, Medication Reconciliation and Communication With Other Providers Discharge Plan Discharge Items Patient Disposition: Home - Self-Care Reason For Visit: CHEST PAIN Discharge Diagnosis: Chset pain Activity: Resume your previous activity Activity Comment: as tolerated, strongly recommend to quit smoking Non-emergency contact: Primary Care Provider, Supply Chain Technician and Saw Tailer Call non-emergency contact if: you have any medication questions Follow-up/Referrals: Leif Yoder MD [Primary Care Provider] - 05/22/19 10:25 am Diet: Heart Healthy Addtl Attending Provider Instructions: Follow up with your primary care doctor in 1 week. Start taking amlodipine daily. Check your blood pressure at home and keep a log of these numbers. Bring the log to your appointments with primary care doctor and/ or lending manager. You will need to follow up with cardiology in 1 month. Strongly recommend to quit smoking. You can call 1 [employer] smoking cessation line. Pending Studies at Discharge: No Stand-Alone Forms: [facility], Smoking Cessation Medications and DC Order Prescriptions: New amlodipine 5 mg tablet 5 mg PO DAILY 30 Days Qty: 30 RF: 0 Continued Anoro Ellipta 62.5-25 mcg/actuation Blister With Device 1 inh INHALATION DAILY RF: 0 Discharge Orders: Discharge Order (Routine); Ordered 05/19/19 Ordered By: Duong Corral Admission Data Admit Date/Time: 05/18/19 16:15 Attending Provider: Duong Corral Admit Provider: Jose J Blackwood Primary Care Provider: Leif Yoder Other Providers: Brian Coburn Other Interventions: Discharge Summary Assessment (RN) Last Done: 05/19/19 19:10 DC Date/Time DO NOT enter until pt leaves facility: 05/19/19 19:32
--- NOTE | 2019-05-19 21:35 | Electrocardiogram Report ---
Test Reason : Blood Pressure : / mmHG Vent. Rate : 059 BPM Atrial Rate : 059 BPM P-R Int : 182 ms QRS Dur : 106 ms QT Int : 448 ms P-R-T Axes : 046 245 075 degrees QTc Int : 443 ms Sinus bradycardia Right superior axis deviation Inferior infarct (cited on or before 18-MAY-2019) Nonspecific T wave abnormality Abnormal ECG When compared with ECG of 18-MAY-2019 14:51, Borderline criteria for Anterior infarct are no longer Present Nonspecific T wave abnormality, worse in Lateral leads Confirmed by Darron Johnson ([id number]) on 05/19/2019 9:35:03 PM Referred By: Brian Coburn Confirmed By:Darron Johnson
== END 2019-05-19 19:32 | disposition home or self-care (01) | DRG 287 ==
LOC: ED 14:33 → 2S 16:15 → SUATTDRO 16:15 → INTOOBSV 16:15 → 2S 16:41